=== PATIENT | female | born 1980 ===

== ENCOUNTER 2020-07-22 06:19 | Inpatient (IN) ==
[2020-07-22] MEDS ORDERED: LIDOCAINE 1%/EPI INJ 20 ML VIAL ONE (06:27)
[2020-07-22] MEDS ORDERED: BUPIVACAINE MPF 0.25% 30 ML VIAL ONE (06:27)
[2020-07-22] MEDS ORDERED: TISSUE ADHESIVE 1 EACH APPLICATOR TOP ONE (06:27)
[2020-07-22] MEDS ORDERED: DIAZEPAM 5 MG TABLET PO STA (06:55)
[2020-07-22] MEDS ORDERED: FAMOTIDINE 20 MG TABLET PO STA (06:55)
[2020-07-22] MEDS ORDERED: DEXAMETHASONE 4 MG/1 ML VIAL ONE (06:59)
[2020-07-22] MEDS ORDERED: ONDANSETRON 4 MG/2 ML VIAL ONE ×2 (06:59→09:33)
[2020-07-22] MEDS ORDERED: DIAZEPAM 5 MG TABLET ONE (06:59)
[2020-07-22] MEDS ORDERED: SUCCINYLCHOLINE 200 MG/10 ML VIAL ONE (06:59)
[2020-07-22] MEDS ORDERED: propofoL 200 MG/20 ML VIAL IV ONE (06:59)
[2020-07-22] MEDS ORDERED: fentaNYL 100 MCG/2 ML VIAL ONE (06:59)
[2020-07-22] MEDS ORDERED: LIDOCAINE 2% 5 ML VIAL ONE (06:59)
[2020-07-22] MEDS ORDERED: ROCURONIUM 50 MG/5 ML VIAL IV ONE (06:59)
[2020-07-22] MEDS ORDERED: MIDAZOLAM 2 MG/2 ML VIAL ONE (06:59)
[2020-07-22] MEDS ORDERED: SEVOFLURANE 1 UNIT/15 MINUTE INH ONE ×7 (06:59→08:51)
[2020-07-22] MEDS ORDERED: FAMOTIDINE 20 MG TABLET ONE (06:59)
[2020-07-22] MEDS ORDERED: LACTATED RINGERS 1,000 ML IV SCH (07:00)
[2020-07-22 07:36] LABS: Calcium 9.2 MG/DL (8.5-10.1); Osmolality,Calculated 269.1 MOS/KG (273-304); Potassium 4.2 MMOL/L (3.5-5.1)
[2020-07-22] MEDS ORDERED: GLYCOPYRROLATE 0.4 MG/2 ML VIAL ONE (07:54)
[2020-07-22] MEDS ORDERED: NEOSTIGMINE 10 MG/10 ML VIAL ONE (07:54)
[2020-07-22] MEDS ORDERED: LACTATED RINGERS 1,000 ML IV ONE (09:02)
[2020-07-22] MEDS ORDERED: PHENYLEPHRINE 10 MG/1 ML VIAL IV ONE (09:23)
[2020-07-22] MEDS ORDERED: SODIUM CHLORIDE 0.9% 100 ML IV ONE (09:23)
[2020-07-22] MEDS ORDERED: ONDANSETRON 4 MG/2 ML VIAL IV PRN (09:33)
[2020-07-22] MEDS ORDERED: HYDROmorphone 2 MG/1 ML VIAL ONE (09:33)
[2020-07-22] MEDS: HYDROmorphone 2 MG/1 ML VIAL IV PRN ×3 (09:34→21:21)
[2020-07-22] MEDS ORDERED: HYDROmorphone 2 MG/1 ML VIAL IV PRN (10:20)
[2020-07-22] MEDS: LACTATED RINGERS 1,000 ML IV SCH ×2 (10:27→17:53)
[2020-07-22] MEDS: PANTOPRAZOLE 40 MG VIAL IV SCH (10:28)
[2020-07-22 11:13] LABS: Basophils % 0.1 % (0.0-0.8); Eosinophils % 0.4 % (0.00-10.9); Hematocrit 40.6 VOL% (35.7-47.0); Hemoglobin 12.7 GM/DL (12.0-16.0); Immature Granulocytes % 0.4 %; Immature Granulocytes Absolute 0.03 #; Lymphocytes # 1.5 10*3/uL (1.4-4.0); Lymphocytes % 18.1 % (21.3-54.2); Mean Corpuscular HGB Conc 31.3 GM/DL (32-36); Mean Corpuscular Volume 92.3 FL (87-102); Mean Platelet Volume 9.3 FL (9.6-12.0); Monocytes % 2.3 % (1.7-12.7); Neutrophils % 78.7 % (38.7-73.9); Platelet Count 384 T/CUMM (130-400); Red Cell Distribution Width 13.8 % (9.3-17.3); White Blood Count 8.1 T/CUMM (4-12)
[2020-07-22 11:31] LABS: Osmolality,Calculated 274.7 MOS/KG (273-304); Potassium 4.5 MMOL/L (3.5-5.1)
[2020-07-22] MEDS: SUCRALFATE 1 GM TABLET PO SCH ×3 (12:06→21:14)
[2020-07-22] MEDS: ONDANSETRON 4 MG/2 ML VIAL IV PRN ×2 (15:32→21:34)
[2020-07-22] MEDS: PROMETHAZINE 25 MG/1 ML VIAL IM PRN (17:32)
[2020-07-22] MEDS ORDERED: NON-FORMULARY MEDICATION (Esomeprazole Magnesium [Nexium] 40 mg Capsule,Delayed Release(Dr PO SCH (21:00)
[2020-07-22] MEDS: DULoxetine 30 MG CAPSULE PO SCH (21:13)
[2020-07-23] MEDS: LACTATED RINGERS 1,000 ML IV SCH ×3 (05:35→21:56)
[2020-07-23 05:57] LABS: Basophils % 0.1 % (0.0-0.8); Hematocrit 38.2 VOL% (35.7-47.0); Hemoglobin 12.3 GM/DL (12.0-16.0); Immature Granulocytes % 0.4 %; Immature Granulocytes Absolute 0.05 #; Lymphocytes # 3.1 10*3/uL (1.4-4.0); Lymphocytes % 24.7 % (21.3-54.2); Mean Corpuscular HGB Conc 32.2 GM/DL (32-36); Mean Corpuscular Volume 88.8 FL (87-102); Mean Platelet Volume 9.5 FL (9.6-12.0); Monocytes % 7.1 % (1.7-12.7); Neutrophils % 67.7 % (38.7-73.9); Platelet Count 417 T/CUMM (130-400); Red Cell Distribution Width 13.9 % (9.3-17.3); White Blood Count 12.5 T/CUMM (4-12)
[2020-07-23 06:14] LABS: Calcium 8.7 MG/DL (8.5-10.1); Osmolality,Calculated 265.2 MOS/KG (273-304)
[2020-07-23] MEDS: ENOXAPARIN 40 MG/0.4 ML SYRINGE SUBCUT SCH (06:55)
[2020-07-23] MEDS: SUCRALFATE 1 GM TABLET PO SCH ×4 (09:30→21:13)
[2020-07-23] MEDS: PANTOPRAZOLE 40 MG VIAL IV SCH (09:30)
[2020-07-23] MEDS: PROMETHAZINE 25 MG/1 ML VIAL IM PRN (10:16)
[2020-07-23] MEDS: HYDROmorphone 2 MG/1 ML VIAL IV PRN (10:17)
[2020-07-23] MEDS: DULoxetine 30 MG CAPSULE PO SCH ×2 (17:39→18:29)
[2020-07-24] MEDS: HYDROmorphone 2 MG/1 ML VIAL IV PRN (00:14)
[2020-07-24] MEDS: ENOXAPARIN 40 MG/0.4 ML SYRINGE SUBCUT SCH (05:45)
[2020-07-24] MEDS: LACTATED RINGERS 1,000 ML IV SCH (05:46)
[2020-07-24] MEDS: PANTOPRAZOLE 40 MG VIAL IV SCH (09:25)
[2020-07-24] MEDS: SUCRALFATE 1 GM TABLET PO SCH ×2 (09:28→13:34)
[2020-07-24 11:25] VITALS: BP 112/75
== END 2020-07-24 15:25 | disposition home or self-care (01) | DRG 328 ==
LOC: N.OR 06:19 → N.SDSINP 06:21 → N.4E 10:11
PROVIDERS: ADMIT Surgery; ATTEND Surgery

== ENCOUNTER 2022-05-19 20:55 | Inpatient (IN) ==
[2022-05-19] MEDS ORDERED: ACETAMINOPHEN 325 MG TABLET PO PRN (23:35)
[2022-05-19] MEDS ORDERED: ALUMINUM/MAGNES/SIMETH MAX STR 30 ML UDCUP PO PRN (23:35)
[2022-05-19] MEDS: PANTOPRAZOLE 40 MG VIAL IV SCH (23:57)
[2022-05-19] MEDS: MORPHINE 2 MG/1 ML SYRINGE IV PRN (23:58)
[2022-05-20 00:38] LABS: Basophils % 0.2 % (0.0-0.8); Eosinophils # 0.2 10*3/uL (0.0-0.87); Hematocrit 39.3 VOL% (35.7-47.0); Hemoglobin 12.9 GM/DL (12.0-16.0); Immature Granulocytes % 0.2 %; Immature Granulocytes Absolute 0.03 #; Lymphocytes # 5.4 10*3/uL (1.4-4.0); Mean Corpuscular HGB Conc 32.8 GM/DL (32-36); Mean Platelet Volume 9.1 FL (9.6-12.0); Monocytes # 0.6 10*3/uL (0.11-0.8); Monocytes % 5.1 % (1.7-12.7); Neutrophils % 48.5 % (38.7-73.9); Platelet Count 421 T/CUMM (130-400); Red Blood Count 4.27 MC/CUMM (3.8-5.5); Red Cell Distribution Width 13.1 % (9.3-17.3); White Blood Count 12.15 T/CUMM (4-12)
[2022-05-20 00:47] LABS: INR 0.9; PT Patient Result 10.5 SECS (10.1-12.1)
[2022-05-20 00:56] LABS: Alanine Aminotransferase 20 U/L (13-56); Albumin 4.2 G/DL (3.4-5.0); Alkaline Phosphatase 117 U/L (45-117); Aspartate Amino Transferase 14 U/L (0-37); Bilirubin,Total < 0.39 MG/DL (0.20-1.00); Blood Urea Nitrogen 12 MG/DL (7-18); Calcium 8.9 MG/DL (8.5-10.1); Carbon Dioxide 23 MMOL/L (21-32); Chloride 112 MMOL/L (98-107); Glucose 93 MG/DL (74-106); Osmolality,Calculated 278.4 MOS/KG (273-304); Potassium 3.6 MMOL/L (3.5-5.1); Sodium 140 MMOL/L (136-145); Total Protein 7.2 G/DL (6.4-8.2)
[2022-05-20] MEDS: MORPHINE 2 MG/1 ML SYRINGE IV PRN ×4 (04:01→20:48)
[2022-05-20] MEDS ORDERED: DOCUSATE SODIUM 100 MG CAPSULE PO SCH (09:00)
[2022-05-20] MEDS: PANTOPRAZOLE 40 MG VIAL IV SCH ×2 (09:02→20:46)
[2022-05-20] MEDS: ONDANSETRON 4 MG/2 ML VIAL IV PRN (09:02)
[2022-05-20] MEDS: METOCLOPRAMIDE 10 MG/2 ML VIAL IV SCH ×2 (12:39→17:50)
[2022-05-21] MEDS: METOCLOPRAMIDE 10 MG/2 ML VIAL IV SCH ×3 (00:50→13:12)
[2022-05-21] MEDS ORDERED: LACTATED RINGERS 1,000 ML IV SCH (09:00)
[2022-05-21] MEDS ORDERED: propofoL 200 MG/20 ML VIAL IV ONE ×2 (11:34→11:44)
[2022-05-21] MEDS ORDERED: LIDOCAINE 2% 5 ML VIAL ONE (11:34)
[2022-05-21] MEDS: ONDANSETRON 4 MG/2 ML VIAL IV PRN (11:53)
[2022-05-21 12:52] LABS: Basophils % 0.1 % (0.0-0.8); Eosinophils # 0.2 10*3/uL (0.0-0.87); Eosinophils % 1.7 % (0.00-10.9); Hematocrit 43.2 VOL% (35.7-47.0); Hemoglobin 13.8 GM/DL (12.0-16.0); Immature Granulocytes % 0.2 %; Immature Granulocytes Absolute 0.02 #; Lymphocytes # 3.9 10*3/uL (1.4-4.0); Lymphocytes % 43.9 % (21.3-54.2); Mean Corpuscular HGB Conc 31.9 GM/DL (32-36); Mean Corpuscular Volume 93.3 FL (87-102); Mean Platelet Volume 9.2 FL (9.6-12.0); Monocytes # 0.5 10*3/uL (0.11-0.8); Monocytes % 5.5 % (1.7-12.7); Neutrophils % 48.6 % (38.7-73.9); Platelet Count 416 T/CUMM (130-400); Red Blood Count 4.63 MC/CUMM (3.8-5.5)
[2022-05-21] MEDS: PANTOPRAZOLE 40 MG VIAL IV SCH (13:13)
[2022-05-21] MEDS: MORPHINE 2 MG/1 ML SYRINGE IV PRN ×2 (14:10→22:26)
[2022-05-21] MEDS: METOCLOPRAMIDE 10 MG/10 ML UDCUP PO SCH ×2 (16:29→20:38)
[2022-05-21] MEDS: PANTOPRAZOLE 40 MG TABLET PO SCH (20:37)
[2022-05-22 04:55] LABS: Basophils % 0.2 % (0.0-0.8); Eosinophils # 0.2 10*3/uL (0.0-0.87); Eosinophils % 2.6 % (0.00-10.9); Hematocrit 38.8 VOL% (35.7-47.0); Hemoglobin 12.9 GM/DL (12.0-16.0); Immature Granulocytes % 0.2 %; Immature Granulocytes Absolute 0.02 #; Lymphocytes # 4.6 10*3/uL (1.4-4.0); Lymphocytes % 50.6 % (21.3-54.2); Mean Corpuscular HGB Conc 33.2 GM/DL (32-36); Mean Corpuscular Volume 91.9 FL (87-102); Mean Platelet Volume 9.7 FL (9.6-12.0); Monocytes # 0.6 10*3/uL (0.11-0.8); Monocytes % 6.9 % (1.7-12.7); Neutrophils % 39.5 % (38.7-73.9); Platelet Count 379 T/CUMM (130-400); Red Blood Count 4.22 MC/CUMM (3.8-5.5); Red Cell Distribution Width 12.8 % (9.3-17.3); White Blood Count 8.99 T/CUMM (4-12)
[2022-05-22 05:09] LABS: Calcium 8.9 MG/DL (8.5-10.1); Potassium 3.9 MMOL/L (3.5-5.1)
[2022-05-22 07:58] VITALS: BP 108/69
[2022-05-22] MEDS: PANTOPRAZOLE 40 MG TABLET PO SCH (08:39)
[2022-05-22] MEDS: METOCLOPRAMIDE 10 MG/10 ML UDCUP PO SCH ×2 (08:39→11:27)
== END 2022-05-22 11:30 | disposition home or self-care (01) | DRG 384 ==
LOC: N.2E → SUATTDRO 23:08
PROVIDERS: ADMIT Internal Medicine; ATTEND Internal Medicine